=== PATIENT | female | born 1985 | race American Indian/Alaskan Native ===

== ENCOUNTER 2021-12-07 12:11 | Inpatient (IN) | payer OTHER ==
[~2021-12-07] VITALS: Ht 167.6 cm; Wt 81.4 kg
[2021-12-07 14:03] LABS: Basophils # (auto) 0 10 ^3/uL (0-0.2); Basophils % (auto) 0.2 % (0.0-2.0); Eosinophils # (auto) 0 10 ^3/uL (0-0.8); Eosinophils % (auto) 0.2 % (0.0-7.0); Hematocrit 31.9 % (36.0-46.0); Hemoglobin 10.2 g/dL (12.2-16.2); Lymphocytes # (auto) 1.3 10 ^3/uL (0.4-5.4); Lymphocytes % (auto) 13.1 % (10.0-50.0); Mean Corpuscular Hemoglobin 24.3 pg (28.0-32.0); Mean Corpuscular Volume 75.9 fL (80.0-100.0); Monocytes % (auto) 9.9 % (0.0-12.0); Neutrophils # (auto) 7.8 10 ^3/uL (1.6-8.6); Neutrophils % (auto) 76.6 % (37.0-80.0); Nucleated Red Blood Cells % 0.1 %; Red Cell Distribution Width 17.8 % (11.8-14.3); White Blood Cell 10.1 10^3/uL (4.4-10.8)
[2021-12-07 14:04] LABS: Albumin 3.6 g/dL (3.4-5.0); BUN/Creatinine Ratio 17.1; Calcium 9.4 mg/dL (8.5-10.1); Potassium 4.1 mmol/L (3.5-5.1)
[2021-12-07 14:07] LABS: Total Protein 7.9 g/dL (6.4-8.2)
[2021-12-07 14:59] LABS: Urine Bacteria NONE SEEN /hpf (None Seen); Urine Blood TRACE /uL (Negative); Urine Mucus MODERATE (None Seen); Urine Specific Gravity 1.034 (1.001-1.035); Urine WBC 6 /hpf (0 - 5)
[2021-12-07] MEDS: HYDROmorphone HCL 2 MG/ML VL IV PRN (21:16)
[2021-12-07] MEDS: ONDANSETRON HCL 4 MG/2 ML VIAL IV PRN (21:17)
[2021-12-07] MEDS: MILK OF MAGNESIA 30ML SUSP PO SCH (22:00)
[2021-12-07] MEDS: PANTOPRAZOLE 40 MG/10 ML VIAL INJ IV SCH (22:02)
[2021-12-08] MEDS ORDERED: ALBU2TAB4 INH (00:30)
[2021-12-08 05:00] VITALS: BP 109/63
[2021-12-08] MEDS: MILK OF MAGNESIA 30ML SUSP PO SCH ×3 (06:42→22:31)
[2021-12-08] MEDS: HYDROmorphone HCL 2 MG/ML VL IV PRN ×3 (06:46→22:30)
[2021-12-08] MEDS: ONDANSETRON HCL 4 MG/2 ML VIAL IV PRN ×2 (06:47→22:32)
[2021-12-08 09:16] VITALS: BP 107/60
[2021-12-08] MEDS: ENOXAPARIN SOD 40 MG/0.4 ML SYRINGE SC SCH (10:00)
[2021-12-08] MEDS: PANTOPRAZOLE 40 MG/10 ML VIAL INJ IV SCH ×3 (10:00→22:29)
[2021-12-08] MEDS ORDERED: HYDROmorphone HCL 2 MG/ML VL IV PRN (10:15)
[2021-12-08 13:20] VITALS: BP 108/48
[2021-12-08] MEDS: HYDROcodone-ACET 5/325MG TAB PO PRN (16:55)
[2021-12-08 16:58] VITALS: BP 105/43
[2021-12-08 22:00] VITALS: BP 111/57
[2021-12-09] MEDS: HYDROcodone-ACET 5/325MG TAB PO PRN ×3 (01:30→21:57)
[2021-12-09 04:59] VITALS: BP 107/61
[2021-12-09] MEDS: MILK OF MAGNESIA 30ML SUSP PO SCH ×3 (06:01→22:00)
[2021-12-09] MEDS: ONDANSETRON HCL 4 MG/2 ML VIAL IV PRN ×3 (06:02→12:26)
[2021-12-09] MEDS: HYDROmorphone HCL 2 MG/ML VL IV PRN ×2 (06:19→09:35)
[2021-12-09 09:00] VITALS: BP 105/61
[2021-12-09] MEDS: PANTOPRAZOLE 40 MG/10 ML VIAL INJ IV SCH ×2 (10:00→21:56)
[2021-12-09] MEDS: ENOXAPARIN SOD 40 MG/0.4 ML SYRINGE SC SCH (10:00)
[2021-12-09 13:00] VITALS: BP 110/69
[2021-12-09 17:00] VITALS: BP 98/64
[2021-12-09 22:00] VITALS: BP 98/57
[2021-12-10] MEDS: HYDROmorphone HCL 2 MG/ML VL IV PRN ×3 (01:21→21:37)
[2021-12-10 05:00] VITALS: BP 101/57
[2021-12-10] MEDS: HYDROcodone-ACET 5/325MG TAB PO PRN ×4 (05:43→19:00)
[2021-12-10] MEDS: MILK OF MAGNESIA 30ML SUSP PO SCH ×3 (05:55→21:22)
[2021-12-10 09:00] VITALS: BP 108/60
[2021-12-10] MEDS: PANTOPRAZOLE 40 MG/10 ML VIAL INJ IV SCH ×2 (10:00→21:22)
[2021-12-10] MEDS: ENOXAPARIN SOD 40 MG/0.4 ML SYRINGE SC SCH (10:00)
[2021-12-10] MEDS: ONDANSETRON HCL 4 MG/2 ML VIAL IV PRN ×2 (14:12→18:05)
[2021-12-10 22:10] VITALS: BP 97/68
[2021-12-11] MEDS: HYDROcodone-ACET 5/325MG TAB PO PRN ×3 (01:09→15:44)
[2021-12-11 05:00] VITALS: BP 106/68
[2021-12-11] MEDS: MILK OF MAGNESIA 30ML SUSP PO SCH ×3 (06:01→22:00)
[2021-12-11 08:46] VITALS: BP 103/58
[2021-12-11] MEDS: HYDROmorphone HCL 2 MG/ML VL IV PRN (10:50)
[2021-12-11] MEDS: ENOXAPARIN SOD 40 MG/0.4 ML SYRINGE SC SCH (10:50)
[2021-12-11] MEDS: PANTOPRAZOLE 40 MG/10 ML VIAL INJ IV SCH ×2 (10:50→22:00)
[2021-12-11] MEDS: ONDANSETRON HCL 4 MG/2 ML VIAL IV PRN ×2 (11:15→19:10)
[2021-12-11 13:00] VITALS: BP 110/62
[2021-12-11 17:04] VITALS: BP 90/44
[2021-12-11 20:00] VITALS: BP 99/67
[2021-12-11 22:00] VITALS: BP 99/67
[2021-12-12] MEDS: HYDROcodone-ACET 5/325MG TAB PO PRN ×4 (01:22→18:49)
[2021-12-12 05:00] VITALS: BP 107/61
[2021-12-12] MEDS: MILK OF MAGNESIA 30ML SUSP PO SCH ×2 (06:14→13:30)
[2021-12-12 08:00] VITALS: BP 103/41
[2021-12-12] MEDS: ENOXAPARIN SOD 40 MG/0.4 ML SYRINGE SC SCH (09:12)
[2021-12-12] MEDS: PANTOPRAZOLE 40 MG/10 ML VIAL INJ IV SCH (09:12)
[2021-12-12] MEDS: HYDROmorphone HCL 2 MG/ML VL IV PRN (09:13)
[2021-12-12 12:00] VITALS: BP 110/71
[2021-12-12 16:00] VITALS: BP 102/51
[2021-12-12 16:35] VITALS: BP 110/71
== END 2021-12-12 20:01 | DRG 756 ==
LOC: ER 12:11 → EEVIPCON 12:11 → OVERFLOW 20:13 → WEST WING 22:45
PROVIDERS: ADMIT Specialist; ATTEND Internal Medicine
DX: C56.9 Malignant neoplasm of unspecified ovary (principal); B19.20 Unspecified viral hepatitis C without hepatic coma; J45.909 Unspecified asthma, uncomplicated; Z20.822 Contact with and (suspected) exposure to COVID-19
CPT/HCPCS: 36415; 74176; 80053; 81001; 81025; 82962; 83615; 83690; 85025; 86301; 86304; 87081; 87426; 96374; C9113; G0378; J2405